=== PATIENT | male | born 1950 | race Caucasian/White ===

== ENCOUNTER 2016-10-15 07:34 | Day surgery (SDC) | payer OTHER ==
[2016-10-15] MEDS ORDERED: NS 1,000 ML IV ONE (07:39)
[2016-10-15] MEDS ORDERED: DIAZEPAM 5 MG TAB PO ONE (07:39)
[2016-10-15] MEDS ORDERED: diphenhydrAMINE 25 MG CAP PO ONE ×2 (07:39→07:51)
[2016-10-15] MEDS ORDERED: ASPIRIN EC 325 MG TAB PO ONE ×2 (07:39→07:51)
[2016-10-15] MEDS ORDERED: FAMOTIDINE 20 MG TAB PO ONE (07:39)
[2016-10-15] MEDS ORDERED: FAMOTIDINE 20 MG TAB ONE (07:51)
[2016-10-15] MEDS ORDERED: DIAZEPAM 5 MG TAB ONE (07:51)
[2016-10-15] MEDS ORDERED: ASPIRIN 81 MG CHEWABLE TAB ONE (08:07)
--- NOTE | 2016-10-15 08:08 | CPEKG ---
Heart Rate: 54 RR Interval: 1111 P-R Interval: 228 QRSD Interval: 102 QT Interval: 476 QTC Interval: 452 P [place]: 78 QRS [place]: -4 T Wave [place]: 34 EKG Severity - ABNORMAL ECG - EKG Impression: SINUS RHYTHM EKG Impression: FIRST DEGREE AV BLOCK EKG Impression: ABNRM R PROG, CONSIDER ASMI OR LEAD PLACEMENT Electronically Signed By: Estrella Finch 15-Oct-2016 10:00:05
[2016-10-15 08:17] LABS: % IMMATURE GRANULYOCYTES 0.2 % (0.0-1.1); ABSOLUTE IMMATURE GRANULOCYTES 0.01 10^3/uL (0.00-0.10); ADD DIFF? NO; ADD MORPH? NO; ADD SCAN? NO; ATYPICAL LYMPHOCYTE FLAG 10 (0-99); FRAGMENT RBC FLAG 0 (0-99); HEMATOCRIT 45.8 % (40.0-51.0); HEMOGLOBIN 15.8 g/dL (13.7-17.5); LEFT SHIFT FLG 0 (0-99); LIPEMIA HEMOLYSIS FLAG 90 (0-99); MEAN CELL HEMOGLOBIN 30.7 pg (27.9-34.1); MEAN CELL HEMOGLOBIN CONCENTR. 34.5 g/dL (32.4-36.7); MEAN CELL VOLUME 88.9 fL (81.5-99.8); MEAN PLATELET VOLUME 8.8 fL (8.7-11.7); PLATELET CLUMPS FLAG 0 (0-99); PLATELET COUNT 201 10^3/uL (150-400); RED BLOOD CELL COUNT 5.15 10^6/uL (4.40-6.38); RED CELL DISTRIBUTION WIDTH 12.9 % (11.5-15.2)
[2016-10-15 08:51] LABS: ANION GAP 10 mEq/L (8-16); CALCIUM 9.6 mg/dL (8.5-10.4); CARBON DIOXIDE 22 mEq/l (22-31); CHLORIDE 109 mEq/L (97-110); CHOLESTEROL 114 mg/dL (140-220); CHOLESTEROL/HDL RATIO 2.71 RATIO (1.00-4.97); CREATININE 0.8 mg/dL (0.7-1.3); GLOMERULAR FILTRATION RATE > 60; GLUCOSE 94 mg/dL (70-100); HIGH DENSITY LIPOPROTEIN 42 mg/dL (40-65); INR 1.07 (0.83-1.16); LDL/HDL RATIO 1.31 RATIO (1.00-3.64); LOW DENSITY LIPOPROTEIN 55 mg/dL (80-100); MAGNESIUM 1.7 mg/dL (1.6-2.3); NON-HIGH DENSITY LIPOPROTEIN 72 mg/dL (90-129); POTASSIUM 4.5 mEq/L (3.5-5.2); PROTIME(PATIENT) 13.8 SEC (12.0-15.0); SODIUM 141 mEq/L (134-144); TRIGLYCERIDE 89 mg/dL (40-150); VERY LOW DENSITY LIPOPROTEINS 17 mg/dL (8-25)
[2016-10-15] MEDS ORDERED: MIDAZOLAM 2 MG/2 ML VIAL ONE (11:17)
[2016-10-15] MEDS ORDERED: LIDOCAINE 1% 30 ML SDV ONE (11:17)
[2016-10-15] MEDS ORDERED: fentaNYL 100 MCG/2 ML INJ ONE (11:17)
[2016-10-15] MEDS ORDERED: IOPAMIDOL (ISOVUE-370) 150 ML BTL IV ONE ×2 (11:18→12:06)
[2016-10-15] MEDS ORDERED: ATROPINE SULFATE 1 MG/10 ML SYR IVP PRN (12:57)
[2016-10-15] MEDS ORDERED: HYDROCODONE/APAP 5/325 TAB PO PRN (12:57)
[2016-10-15] MEDS ORDERED: OXYCODONE/APAP 5/325 TAB PO PRN (12:57)
[2016-10-15] MEDS ORDERED: NITROGLYCERIN 0.4 MG BTL SL PRN (12:57)
--- NOTE | 2016-10-15 23:32 | GPN ---
[f rep st] PROCEDURE NOTE DATE OF PROCEDURE: 10/15/2016 PROCEDURE PERFORMED: 1. Diagnostic left heart catheterization. 2. Left coronary angiography. 3. Right coronary angiography. 4. Left ventriculogram. 5. Right common femoral artery angiography. INDICATIONS FOR PROCEDURE: Patient with a known history of coronary artery disease and complaints o f shortness of breath and dyspnea on exertion, with evidence of high-risk findings on nuclear stress test, including anterior ischemia, inferior ischemia, as well as transient ischemic dilatation. PROCEDURE IN DETAIL: After informed consent was obtained, the patient was brought to the cardiac ca theterization lab where he was prepped and draped in a sterile fashion. He has been off his Eliquis for 4 days prior to this procedure. Using 1% lidocaine, the right groin was anesthetized. Using t wil modified Seldinger technique, a 6-Somali catheter was placed into the right common femoral artery without complications. A JL4 catheter was used to take images of the left coronary anatomy in mult iple projections. The JL4 catheter was exchanged over a guidewire for a JR4 catheter. Attempts to cannulate the right coronary artery with the JL4 were unsuccessful. JR4 catheter was exchanged over a guidewire for a Rebel right catheter. Rebel right catheter, I was able to successfully can nulate the right coronary artery. Images of the right coronary artery were obtained in multiple pro jections. The Rebel right catheter is exchanged over a guidewire for an angled pigtail catheter. An angled pigtail catheter was used to cross the aortic valve. Left ventriculogram was performed. LVEDP was assessed. Aortic valve pullback was assessed. FINDINGS: 1. Left main is quite short in duration and promptly bifurcates into a left anterior descending and left circumflex coronary artery. There is no evidence of coronary disease within the left main. 2. The left anterior descending is a moderate size vessel that wraps around the left ventricular ap ex. There are mild luminal irregularities throughout the LAD diffusely. Nothing more significant t morales 20% to 30%. There is a moderate size 1st diagonal branch. There is evidence of 80% to 90% sten osis in the distal segment of this diagonal branch in a sub 2-mm vessel. 3. Circumflex artery is a large artery that bifurcates into a large 1st obtuse marginal branch. Th ere are mild luminal irregularities throughout the circumflex. 4. The right coronary artery is a dominant large caliber vessel, with jlzz-er-idnwhdeh luminal irre gularities that branches into a PDA and posterior lateral branch. There is no critical focal stenos is. 5. Left ventriculogram demonstrates a dilated left ventricular cavity, with LVEF of approximately 4 5% with global hypokinesis. 6. Right common femoral artery angiography demonstrated appropriate placement of 6-Somali femoral a rtery sheath. CONCLUSION: 1. Yhlj-lk-ngannabs diffuse coronary disease, with no flow-limiting stenosis of main vessels. 2. Focal stenosis of distal diagonal branch in a sub 2 mm vessel. Medical therapy only. 3. Dilated cardiomyopathy, with LVEF of 45%. PLAN: 1. We will continue to focus on optimal medical management. 2. Patient is scheduled for followup in the office next week. /[id number]/MODL
== END 2016-10-15 17:34 | disposition home or self-care (01) ==
LOC: FCATH 07:34
PROVIDERS: ATTEND Internal Medicine Cardiovascular Disease
DX: I25.10 Atherosclerotic heart disease of native coronary artery without angina pectoris (principal); E78.4 Other hyperlipidemia; E03.9 Hypothyroidism, unspecified; I51.7 Cardiomegaly
CPT/HCPCS: C1760; J1644; J2250; J3010; Q9967

== ENCOUNTER → 2017-06-04 | Day surgery (SDC) | payer OTHER ==
[~2017-06-04] MED LIST: ATROPINE SULFATE 1 MG/10 ML SYR IVP ONE; MIDAZOLAM 2 MG/2 ML VIAL IVP ONE; NS 500 ML IV ONE; fentaNYL 100 MCG/2 ML INJ IVP ONE
[2017-06-04 12:30] LABS: INR 1.15 (0.83-1.16); PROTIME(PATIENT) 14.9 SEC (12.0-15.0)
--- NOTE | 2017-06-04 14:58 | GCON ---
[f rep st] CONSULTATION PROCEDURE PERFORMED: Cardioversion. The patient was brought to [facility]. He is a patient of Dr. Jae Shaver and he genao d atrial fibrillation. He has longstanding atrial fibrillation and has been on full anticoagulation for over a year. He does not miss his medication and he did not want a transesophageal echocardiogram but wanted to pr oceed to direct cardioversion without DORINDA. He and I had reviewed extensively the risks and benefits of adding a DORINDA to just the full anticoagula tion he has had and he feels like that is not enough to make it worthwhile doing and wanted to procee d with just cardioversion alone. His preoperative labs came back with a potassium 6.4. He had a sodium of 143. He had a potassium of 6.4, chloride of 107, CO2 23, anion gap 13, glucose 104, and BUN 35. We did a repeat potassium afte r some hydration and it was still elevated above 5.2. We offered the patient to stay overnight in the hospital, have cardioversion the next morning, and he is not interested in that. We offered to keep him in the hospital for several hours of normal salin e hydration and he was not interested in that. What he was willing to do was have IV hydration of ap proximately 300 cc over an hour and then he wanted to go home. So, I was with him multiple times thr oughout this whole process and was with the nurse and I together helped get him ready to be discharge d and take off his blood pressure cuff, IVs, etc. And all his questions have been answered. He is c oming in at 9 o'clock tomorrow morning for a cardioversion, which is scheduled for 10:30 in the [facility] [facility]. We will hydrate him with normal saline when he gets here. We will repeat his electrolytes to e if his potassium is in the normal range. All his questions have been answered. I did offer for him to get his stat electrolytes done tomorrow morning early at [place], which is close to him, rather than driving all the way to [place] and hen finding out that his potassium is worse or not acceptable for the procedure. He is not intereste d in that. He wants to get everything done at [place] and he wants to come down here for this, so th at is our plan and we will go from there. All his questions have been answered. He is ready and alert and able and wants to drive home. /[id number]/MODL
== END | disposition home or self-care (01) ==
LOC: FCATH 11:33
PROVIDERS: ATTEND Internal Medicine
DX: I48.91 Unspecified atrial fibrillation (principal); Z79.01 Long term (current) use of anticoagulants; Z53.09 Procedure and treatment not carried out because of other contraindication; E87.5 Hyperkalemia

== ENCOUNTER 2017-06-05 08:58 | Day surgery (SDC) | payer OTHER ==
[2017-06-05] MEDS ORDERED: ATROPINE SULFATE 1 MG/10 ML SYR IVP ONE (09:06)
[2017-06-05] MEDS ORDERED: fentaNYL 100 MCG/2 ML INJ IVP ONE (09:06)
[2017-06-05] MEDS ORDERED: MIDAZOLAM 2 MG/2 ML VIAL IVP ONE (09:06)
[2017-06-05] MEDS ORDERED: NS 500 ML IV ONE (09:06)
[2017-06-05] MEDS ORDERED: NS 1,000 ML IV ONE (09:30)
--- NOTE | 2017-06-05 09:35 | CPEKG ---
Heart Rate: 119 RR Interval: 504 QRSD Interval: 106 QT Interval: 344 QTC Interval: 485 QRS [place]: -11 T Wave [place]: 78 EKG Severity - ABNORMAL ECG - EKG Impression: ATRIAL FLUTTER WITH 2:1 AV BLOCK EKG Impression: VENTRICULAR PREMATURE COMPLEX EKG Impression: PROBABLE LEFT VENTRICULAR HYPERTROPHY EKG Impression: ST ELEVATION, CONSIDER ANTERIOR INJURY EKG Impression: BORDERLINE PROLONGED QT INTERVAL Electronically Signed By: Ang Beltran 05-Jun-2017 12:06:54
[2017-06-05 09:56] LABS: INR 1.45 (0.83-1.16); PROTIME(PATIENT) 17.8 SEC (12.0-15.0)
[2017-06-05] MEDS ORDERED: PROPOFOL 200 MG/20 ML VIAL ONE (10:30)
[2017-06-05] MEDS ORDERED: LIDOCAINE 1% 5 ML SDV ONE (10:30)
[2017-06-05] MEDS ORDERED: ALBUTEROL 3 ML DEYVIAL IH PRN (10:42)
[2017-06-05] MEDS ORDERED: NALOXONE HCL 0.4 MG/ML INJ IVP PRN (10:42)
--- NOTE | 2017-06-05 10:42 | PDANEPAE ---
ANE History of Present Illness A. flutter ANE Past Medical History - Cardiovascular History Hx Hypertension: Yes Hx Arrhythmias: Yes Hx Chest Pain: Yes Hx Coronary Artery / Peripheral Vascular Disease: Yes Hx CHF / Valvular Disease: Yes Hx Palpitations: No - Pulmonary History Hx COPD: Yes Hx Asthma/Reactive Airway Disease: No Hx Recent Upper Respiratory Infection: No Hx Oxygen in Use at Home: Yes Hx Sleep Apnea: Yes Pulmonary History Comment: CHF - Neurologic History Hx Cerebrovascular Accident: No Hx Seizures: No Hx Dementia: No - Endocrine History Hx Diabetes: No - Renal History Hx Renal Disorders: No - Liver History Hx Hepatic Disorders: No - Neurological & Psychiatric Hx Hx Neurological and Psychiatric Disorders: No - Cancer History Hx Cancer: No - Congenital Disorder History Hx Congenital Disorders: No - GI History Hx Gastrointestinal Disorders: No - Chronic Pain History Chronic Pain: No - Surgical History Prior Surgeries: mitral valve sx, Ablation, appendectomy, colon resection, rotator cuff repair, knee sx ANE Review of Systems Review of systems is: negative Review of Systems: - Exercise capacity Exercise capacity: >=4 METS ANE Patient History - Allergies Allergies/Adverse Reactions: latex [Latex] Allergy (Verified 10/05/11 15:06) NARCOTICS Allergy (Uncoded 06/05/17 06:29) Itching - Home Medications Home Medications: Albuterol Hfa Anes Only [Proair Hfa Icu (*)] 1 - 2 puffs IH Q4 PRN 10/05/11 [ Last Taken 06/05/17 06:00] Atorvastatin Calcium [Lipitor 40 mg (*)] 40 mg PO HS 10/05/11 [Last Taken ] MIRTAZAPINE [Remeron 7.5 mg] 3.75 mg PO HS 11/09/12 [Last Taken 10/15/16] Liothyronine Sodium [Cytomel 25 mcg (*)] 12.5 mcg PO DAILY 11/12/12 [Last Taken 06/05/17 06:00] Psyllium Husk (with Sugar) [Metamucil Packet] 1 packet PO DAILY PRN 11/12/12 [ Last Taken 10/14/16] ALPRAZolam [Xanax 1 MG (*)] 1 mg PO HS 11/15/12 [Last Taken 10/14/16] Aspirin EC [Aspirin EC 81 mg (*)] 81 mg PO DAILY 05/02/13 [Last Taken 06/04/17 08:00] Lisinopril [Zestril 5 mg (*)] 5 mg PO DAILY 05/02/13 [Last Taken 06/05/17 06:00] Tiotropium Inhaler [Spiriva Inhaler (RX)] 1 inh IH DAILY 05/02/13 [Last Taken ] buPROPion XL [Wellbutrin 150mg XL] 150 mg PO DAILY 05/02/13 [Last Taken 06:00] Sotalol HCl [Sotalol] 120 mg PO BID 06/15/14 [Last Taken 10/15/16] Eliquis 5 mg 10/15/16 [Last Taken 06/05/17 06:00] Flunisolide Nasal 25 mcg 10/15/16 [Last Taken 10/15/16] GABAPENTIN 100 mg BID 10/15/16 [Last Taken 06/05/17 06:00] - NPO status NPO Status: no food or drink >8 hours - Anes Hx Anes Hx: no prior problems - Smoking Hx Smoking Status: Former smoker Marijuana use: Yes - Alcohol Use Alcohol Use: None - Family Anes Hx Family Hx Anesthesia Complications: none ANE Labs/Vital Signs - Labs Result Diagrams: 06/05/17 09:15 - Vital Signs Vital Signs: reviewed preoperatively; see RN documention for details Height: 178 cm Weight: 95.3 kg ANE Physical Exam - Airway Neck exam: FROM Mallampati Score: Class 3 Mouth exam: normal dental/mouth exam - Pulmonary Pulmonary: no respiratory distress - Cardiovascular Cardiovascular: regular rate and rhythym - ASA Status ASA Status: III ANE Anesthesia Plan Anesthesia Plan: GA with mask
--- NOTE | 2017-06-05 10:46 | PDHPUP ---
History & Physical Update H&P update statement: This history and physical update is based on an assessment of the patient which was completed after admission or registration (within 24 hours), but prior to the surgery/procedure.
--- NOTE | 2017-06-05 11:05 | POSTANESTH ---
Post Anesthetic Evaluation Cardiovascular Status: Normal, Stable Respiratory Status: Normal, Stable Level of Consciousness/Mental Status: Can Participate in Eval Pain Control: Adequate, Prn Tx Ordered Nausea/Vomiting Control: Adequate, Prn Tx Ordered Complications Possibly Related to Anesthesia: None Noted
--- NOTE | 2017-06-05 11:06 | CPEKG ---
Heart Rate: 68 RR Interval: 882 P-R Interval: 224 QRSD Interval: 104 QT Interval: 412 QTC Interval: 439 P [place]: 61 QRS [place]: 0 T Wave [place]: 47 EKG Severity - ABNORMAL ECG - EKG Impression: SINUS RHYTHM EKG Impression: FIRST DEGREE AV BLOCK EKG Impression: BORDERLINE R WAVE PROGRESSION, ANTERIOR LEADS EKG Impression: BORDERLINE ST ELEVATION, ANTERIOR LEADS Electronically Signed By: Ang Beltran 05-Jun-2017 12:06:27
--- NOTE | 2017-06-05 12:12 | CPIP ---
[f rep st] INVASIVE CARDIAC PROCEDURE DATE OF PROCEDURE: 06/05/2017 PROCEDURE: Cardioversion. The patient gave informed consent for a cardioversion. His potassium was mildly elevated at 5.4, and he is going to follow up with his doctors about this. He wanted to proceed with the cardioversion despite the little bit of increased risk with an elevated potassium and being aware of the risks of stroke, asystole , etc, that are inherent in cardioversions. He was eager to proceed, and with 360 watt/seconds, he converted from atrial fibrillation to normal sinus rhythm. He has been on full anticoagulation for many months, and has not missed any doses. He is going to continue his anticoagulation and follow up with Dr. Staley. COMPLICATIONS: None. CONDITION: Following study, excellent. All questions answered. /[id number]/MODL MTDD
== END 2017-06-05 12:21 | disposition home or self-care (01) ==
LOC: FCATH 08:58
PROVIDERS: ATTEND Internal Medicine
PROC: 5A2204Z Restoration of Cardiac Rhythm, Single (ICD-10-PCS; principal; 2017-06-05)
DX: I48.91 Unspecified atrial fibrillation (principal); I48.92 Unspecified atrial flutter; I10 Essential (primary) hypertension; E78.5 Hyperlipidemia, unspecified; Z82.49 Family history of ischemic heart disease and other diseases of the circulatory system; Z79.01 Long term (current) use of anticoagulants
CPT/HCPCS: J0461; J2704

== ENCOUNTER 2017-07-23 11:09 | Observation (INO) | payer OTHER ==
--- NOTE | 2017-07-23 11:21 | CPEKG ---
Heart Rate: 148 RR Interval: 405 QRSD Interval: 102 QT Interval: 304 QTC Interval: 478 QRS [place]: -4 T Wave [place]: 16 EKG Severity - ABNORMAL ECG - EKG Impression: ATRIAL FIBRILLATION EKG Impression: VENTRICULAR BIGEMINY EKG Impression: CONSIDER INFERIOR INFARCT EKG Impression: PROBABLE ANTERIOR INFARCT, ACUTE Electronically Signed By: Otto Saez 23-Jul-2017 12:46:16
--- NOTE | 2017-07-23 11:37 | EDPHY ---
H & P Stated Complaint: afib since this morning Time Seen by Provider: 07/23/17 11:17 HPI/ROS: CHIEF COMPLAINT: Palpitations HISTORY OF PRESENT ILLNESS: The patient presents to the emergency department with complaints of palpitations that began earlier today. The patient has a history of atrial tachycardia. Status post Maze procedure, status post ablation x2, currently anticoagulated with Eliquis, NPO since yesterday. The patient was last cardioverted for this arrhythmia mid June. He is currently on sotalol. The patient denies any recent fever, cough or congestion. He has no active complaints of chest pain. REVIEW OF SYSTEMS: A comprehensive 10 point review of systems is otherwise negative aside from elements mentioned in the history of present illness. Source: Patient Exam Limitations: No limitations - Personal History Current Tetanus/Diphtheria Vaccine: Unsure Tetanus Vaccine Date: >10 YRS - Medical/Surgical History Hx Asthma: No Hx Chronic Respiratory Disease: No Hx Diabetes: No Hx Cardiac Disease: Yes Hx Renal Disease: No Hx Cirrhosis: No Hx Alcoholism: No Hx HIV/AIDS: No Hx Splenectomy or Spleen Trauma: No Other PMH: afib/degenerative disc/back fx - Social History Smoking Status: Former smoker - Physical Exam Exam: General Appearance: Alert, no distress Eyes: Pupils equal and round no pallor or injection ENT, Mouth: Mucous membranes moist Respiratory: There are no retractions, lungs are clear to auscultation Cardiovascular: Tachycardic, irregular Gastrointestinal: Abdomen is soft and nontender, no masses, bowel sounds normal Neurological: A&O, normal motor function, normal sensory exam, normal cranial nerves Skin: Warm and dry, no rashes Musculoskeletal: Neck is supple nontender Extremities: symmetrical, full range of motion Constitutional: Initial Vital Signs Temperature (C) 36.5 C 07/23/17 11:12 Heart Rate 131 H 07/23/17 11:12 Respiratory Rate 18 07/23/17 11:12 Blood Pressure 148/110 H 07/23/17 11:12 O2 Sat (%) 95 07/23/17 11:12 O2 Delivery Mode Room Air Allergies/Adverse Reactions: latex [Latex] Allergy (Verified 07/23/17 11:11) NARCOTICS Allergy (Uncoded 06/05/17 06:29) Itching Home Medications: Medication Instructions Recorded Albuterol Hfa Anes Only [Proair 1 - 2 puffs IH Q4 PRN 10/05/11 Hfa Icu (*)] Atorvastatin Calcium [Lipitor 40 40 mg PO HS 10/05/11 mg (*)] MIRTAZAPINE [Remeron 7.5 mg] 3.75 mg PO HS 11/09/12 Liothyronine Sodium [Cytomel 25 12.5 mcg PO DAILY 11/12/12 mcg (*)] Psyllium Husk (with Sugar) 1 packet PO DAILY PRN 11/12/12 [Metamucil Packet] ALPRAZolam [Xanax 1 MG (*)] 1 mg PO HS 11/15/12 Aspirin EC [Aspirin EC 81 mg (*)] 81 mg PO DAILY 05/02/13 Lisinopril [Zestril 5 mg (*)] 5 mg PO DAILY 05/02/13 Tiotropium Inhaler [Spiriva 1 inh IH DAILY 05/02/13 Inhaler (RX)] buPROPion XL [Wellbutrin 150mg XL] 150 mg PO DAILY 05/02/13 Sotalol HCl [Sotalol] 120 mg PO BID 06/15/14 Eliquis 5 mg 10/15/16 Flunisolide Nasal 25 mcg 10/15/16 GABAPENTIN 100 mg BID 10/15/16 Medical Decision Making - Diagnostics EKG Interpretation: EKG: Complete interpretation has been separately recorded in the [employer] archive. Summary impression: Atrial flutter with what appears to be a rate- related variable left bundle branch block ED Course/Re-evaluation: The patient presents to the ED with recurrent atrial tachycardia. He is currently hemodynamically stable. The patient is currently NPO. I reviewed his past medical records including his cardioversion from June of this year. I consulted with Dr. Alvarenga from Cardiology who evaluated the patient in the emergency department and will admit the patient to the [facility] for elective cardioversion and DORINDA. The patient remained stable throughout his ER course. Differential Diagnosis: Differential diagnosis considered includes atrial fibrillation, atrial flutter, dehydration, metabolic abnormality - Data Points Laboratory Results: Laboratory Results 07/23/17 11:22 07/23/17 07/23/17 11:22 11:22 PT 14.4 SEC SEC (12.0-15.0) INR 1.10 (0.83-1.16) APTT 35.1 SEC SEC (23.0-38.0) Sodium 141 mEq/L mEq/L (135-145) Potassium 4.6 mEq/L mEq/L (3.5-5.2) Chloride 109 mEq/L mEq/L (97-110) Carbon Dioxide 17 mEq/l L mEq/l (22-31) Anion Gap 15 mEq/L mEq/L (8-16) BUN 22 mg/dL mg/dL (7-23) Creatinine 1.0 mg/dL mg/dL (0.7-1.3) Estimated GFR > 60 Glucose 109 mg/dL H mg/dL (70-100) Calcium 9.7 mg/dL mg/dL (8.5-10.4) Magnesium 1.7 mg/dL mg/dL (1.6-2.3) Departure - Departure Disposition: To OP Cath/Surgery Clinical Impression: Atrial fibrillation Condition: Good Referrals: Denzel Angelo MD [Primary Care Provider] - As per Instructions
[2017-07-23] MEDS ORDERED: PROPOFOL 200 MG/20 ML VIAL ONE ×2 (11:55→13:13)
[2017-07-23 12:40] LABS: INR 1.1 (0.83-1.16); PROTIME(PATIENT) 14.4 SEC (12.0-15.0)
[2017-07-23] MEDS ORDERED: ATROPINE SULFATE 1 MG/10 ML SYR IVP ONE (12:46)
[2017-07-23] MEDS ORDERED: fentaNYL 100 MCG/2 ML INJ IVP ONE (12:46)
[2017-07-23] MEDS ORDERED: NS 500 ML IV ONE (12:46)
[2017-07-23] MEDS ORDERED: MIDAZOLAM 2 MG/2 ML VIAL IVP ONE (12:46)
[2017-07-23] MEDS ORDERED: BENZOCAINE UNIT DOSE SPRAY HURRICAINE MM ONE (12:46)
[2017-07-23] MEDS ORDERED: APIXABAN 5 MG TAB PO ONE (13:00)
[2017-07-23] MEDS ORDERED: LIDOCAINE 2% 100 MG/5 ML SYR ONE (13:13)
--- NOTE | 2017-07-23 13:17 | PDHPUP ---
History & Physical Update H&P update statement: This history and physical update is based on an assessment of the patient which was completed after admission or registration (within 24 hours), but prior to the surgery/procedure. H&P update: H&P reviewed & patient examined, no change in patient's condition since H&P completed
[2017-07-23] MEDS ORDERED: PHENYLEPHRINE HCL 100 MCG/ML SYR ONE (13:19)
--- NOTE | 2017-07-23 13:26 | PDANEPAE ---
ANE Past Medical History - Cardiovascular History Hx Hypertension: Yes Hx Arrhythmias: Yes Hx Chest Pain: Yes Hx Coronary Artery / Peripheral Vascular Disease: Yes Hx CHF / Valvular Disease: Yes Hx Palpitations: No - Pulmonary History Hx COPD: Yes Hx Asthma/Reactive Airway Disease: No Hx Recent Upper Respiratory Infection: No Hx Oxygen in Use at Home: Yes O2 in Use at Home (L/minute): 2.5 Hx Sleep Apnea: Yes Pulmonary History Comment: CHF - Neurologic History Hx Cerebrovascular Accident: No Hx Seizures: No Hx Dementia: No - Endocrine History Hx Diabetes: No Hypothyroid: No Hyperthyroid: No Obesity: yes, mild - Renal History Hx Renal Disorders: No - Liver History Hx Hepatic Disorders: No - Neurological & Psychiatric Hx Hx Neurological and Psychiatric Disorders: No - Cancer History Hx Cancer: No - Congenital Disorder History Hx Congenital Disorders: No - GI History GERD: no Hx Gastrointestinal Disorders: No - Chronic Pain History Chronic Pain: No - Surgical History Prior Surgeries: mitral valve sx, Ablation, appendectomy, colon resection, rotator cuff repair, knee sx ANE Review of Systems Review of Systems: - Exercise capacity METS (RN): 4 METS ANE Patient History - Allergies Allergies/Adverse Reactions: latex [Latex] Allergy (Verified 07/23/17 11:11) NARCOTICS Allergy (Uncoded 06/05/17 06:29) Itching - Home Medications Home Medications: Albuterol Hfa Anes Only [Proair Hfa Icu (*)] 1 - 2 puffs IH Q4 PRN 10/05/11 [ Last Taken 06/05/17 06:00] Atorvastatin Calcium [Lipitor 40 mg (*)] 40 mg PO HS 10/05/11 [Last Taken ] MIRTAZAPINE [Remeron 7.5 mg] 3.75 mg PO HS 11/09/12 [Last Taken 10/15/16] Liothyronine Sodium [Cytomel 25 mcg (*)] 12.5 mcg PO DAILY 11/12/12 [Last Taken 06/05/17 06:00] Psyllium Husk (with Sugar) [Metamucil Packet] 1 packet PO DAILY PRN 11/12/12 [ Last Taken 10/14/16] ALPRAZolam [Xanax 1 MG (*)] 1 mg PO HS 11/15/12 [Last Taken 10/14/16] Aspirin EC [Aspirin EC 81 mg (*)] 81 mg PO DAILY 05/02/13 [Last Taken 06/04/17 08:00] Lisinopril [Zestril 5 mg (*)] 5 mg PO DAILY 05/02/13 [Last Taken 06/05/17 06:00] Tiotropium Inhaler [Spiriva Inhaler (RX)] 1 inh IH DAILY 05/02/13 [Last Taken ] buPROPion XL [Wellbutrin 150mg XL] 150 mg PO DAILY 05/02/13 [Last Taken 06:00] Sotalol HCl [Sotalol] 120 mg PO BID 06/15/14 [Last Taken 10/15/16] Eliquis 5 mg 10/15/16 [Last Taken 06/05/17 06:00] Flunisolide Nasal 25 mcg 10/15/16 [Last Taken 10/15/16] GABAPENTIN 100 mg BID 10/15/16 [Last Taken 06/05/17 06:00] - Anes Hx Anes Hx: no prior problems - Smoking Hx Smoking Status: Former smoker - Alcohol Use Alcohol Use: Heavy - Family Anes Hx Family Anes Hx: neg - N/A Family Hx Anesthesia Complications: none ANE Labs/Vital Signs - Labs Result Diagrams: 07/23/17 11:22 - Vital Signs Blood Pressure: 133/84 Heart Rate: 146 Respiratory Rate: 14 O2 Sat (%): 98 Height: 177.8 cm Weight: 93.44 kg ANE Physical Exam - Airway Neck exam: decreased ROM Mallampati Score: Class 3 Mouth exam: normal dental/mouth exam - Pulmonary Pulmonary: no respiratory distress, no rales or rhonchi, clear to auscultation - Cardiovascular Cardiovascular: irregularly irregular - ASA Status ASA Status: III ANE Anesthesia Plan Anesthesia Plan: MAC Total IV Anesthesia: Yes
--- NOTE | 2017-07-23 14:02 | PDTEE1 ---
DORINDA Cardioversion Procedure Procedure: electrical cardioversion Indications: atrial fibrillation Consent: signed and in chart Anticoagulation: eliquis Procedural Details: Pads were placed in anterior-posterior position. DORINDA probe was advanced and standard images obtained. There is no evidence of left atrial or left atrial appendage thrombus. Synchronized cardioversion attempt #1: 200J Results: normal sinus rhythm Conclusions: successful DORINDA cardioversion Patient Problems: Problems Problem Status Onset Atrial fibrillation Acute Afib - Atrial fibrillation Active Bacteremia Active Fever Active Mitral valve regurgitation Active Pneumonia Active
--- NOTE | 2017-07-23 14:15 | CPEKG ---
Heart Rate: 95 RR Interval: 632 P-R Interval: 192 QRSD Interval: 108 QT Interval: 360 QTC Interval: 453 P [place]: 58 QRS [place]: 0 T Wave [place]: 64 EKG Severity - ABNORMAL ECG - EKG Impression: SINUS RHYTHM EKG Impression: VENTRICULAR PREMATURE COMPLEX EKG Impression: ST ELEVATION, CONSIDER ANTERIOR INJURY Electronically Signed By: Lyndon Saucedo 23-Jul-2017 17:32:50
--- NOTE | 2017-07-23 14:50 | GHP ---
[f rep st] HISTORY AND PHYSICAL DATE OF ADMISSION: 07/23/2017 PRIMARY CONSULTING GROUP ANALYST: Jae Staley MD and Rudolph Mahan MD CHIEF COMPLAINT: Atrial flutter. HISTORY OF PRESENT ILLNESS: The patient is a 66-year-old male with a history of mitral valve repair, maze procedure in 2012. He has had recurrent episodes of atrial tachycardia. He has had 2 left atr ial tachycardia ablations. He has previously seen Dr. Mahan, last in August 2015. Current management strategy is Eliquis and sotalol. He presented to the ER earlier today with palpitations that had started this morning. No other cardi ovascular symptoms. He was found to be in likely atrial flutter with ventricular ectopy. He had rap id ventricular response. Because he was symptomatic, we elected to bring him to the [facility]. He underwent a DORINDA-guided cardioversion, as he was not certain that he had not had missed any Eliquis doses in the last several weeks. Please see separate DORINDA report. In summary, his ejection fraction is 30%. He has mitral valve repair with rcjd-hv-mgetfvsq mitral regurgitation. No intracardiac thr ombus. He had a successful cardioversion with 200-joule shock. Immediately after the shock, he had approximately 4-5 beat run of nonsustained VT and then sinus rhythm. His post cardioversion EKG show s sinus rhythm with a single PVC. His QT interval is normal. PAST MEDICAL HISTORY: 1. History of atrial tachycardia and atrial tachycardia ablation. 2. AFib is listed on his medical history. 3. COPD. 4. Dyslipidemia. 5. Hypothyroidism. 6. Status post mitral valve repair and maze procedure in 2012. 7. History of knee surgery, elbow surgery, and shoulder surgery. OUTPATIENT MEDICATIONS: According to Pharmacy, but may not have been reconciled yet are albuterol, X anax, aspirin 81 mg, atorvastatin 40 mg daily, Wellbutrin 150 mg daily, Eliquis 5 mg twice daily, maurice apentin, liothyronine, lisinopril, Remeron, and Spiriva inhaler. His daughter states that he was rec ently started on a new sleeping medication by his psychiatrist. I do not have the name of this yet. FAMILY HISTORY: Not applicable to the current case. SOCIAL HISTORY: The patient is a former smoker. PHYSICAL EXAM: VITAL SIGNS: Blood pressure 133/84, heart rate 146, oxygen saturation 98% on room ai r. He is afebrile. GENERAL: Well-appearing older male in no acute distress. HEENT: Sclerae clear and free of jaundice. Mucous membranes moist. CARDIOVASCULAR: JVP less than 10. Regular tachycar dic rhythm without S3 or murmur. No rub. LUNGS: Occasional scattered rhonchi. ABDOMEN: Soft and nontender. EXTREMITIES: Warm without edema. LABORATORY DATA: INR 1.1. Sodium 141, potassium 4.6, chloride 109, bicarb 17, BUN 20, creatinine 1. 0, magnesium is 1.7. EKG as described above. DORINDA as detailed above. ASSESSMENT/PLAN: A 66-year-old male with history of valvular heart disease and atrial arrhythmia. H e presented in what appears to be either atrial flutter, atrial tachycardia with significant ventricu lar ectopy as well. He is now status post successful DORINDA cardioversion, but he did have nonsustained ventricular tachycardia as his first rhythm post cardioversion and is having ventricular ectopy on t he monitor. I have discussed the case with his primary penal officer, Dr. Jae Staley. The patient did have a nucl ear stress test in 2017 that did show inferolateral ischemia and has not had any angiogram since that time. Because of his arrhythmia, we will admit him for observation. 1. Atrial arrhythmia: We will stop sotalol as it is not apparently effective, and he has been havin g some ventricular tachycardia. I would like him to be seen by Dr. Rudolph Mahan, whom he has seen pr eviously. Continue Eliquis. Start Coreg for his atrial arrhythmia and cardiomyopathy. 2. Ventricular tachycardia: Magnesium is normal. He may require coronary angiogram after he has co mpleted 1 month of anticoagulation status post cardioversion. He is not having any angina and his EK G appears nonischemic. 3. Valvular heart disease: He has fclt-zd-bmlrnula mitral regurgitation through his repaired mitral valve. Other valves appear normal. 4. Cardiomyopathy: Ejection fraction 30%. In the outpatient setting, it has been about 45%. This may be due to his tachyarrhythmia. He does not appear to be in overt heart failure. 5. Chronic obstructive pulmonary disease: I do not think he wears oxygen at home. We will monitor oxygen saturations here. He is not wheezing on exam. I anticipate less than 2 midnights stay just for rhythm observation and med changes. Currently in st able condition. Results discussed with the patient's daughter. /[id number]/MODL
--- NOTE | 2017-07-23 14:58 | ECHO ---
[email or web address] [address] [address] Main: [phone] Fax: Transesophageal Echocardiography Name: MIMI PINEDA MR#: [id number] Study Date: 07/23/2017 Study Time: 01:05 PM Date of : 1950 Age: 66 year(s) Height: ( ) Weight: ( ) BSA: Gender: Male Examination: DORINDA Indication: Pre DORINDA Image Quality: Contrast: Requested by: Jabari Moss Heart Rate: Rhythm: BP: / Procedure Staff Club Waiter/Waitress: Ihsan Mayorga RDCS Reading Physician: Pamela Alvarenga Requesting Provider: Pamela Alvarenga DORINDA Exam Details Conclusions: Moderately reduced systolic LV function. The ejection fraction is visually estimated to be 30 %. Normal RV function. Spontaneous contrast in the left atrium. Good color flow doppler in the left atrial appendage. No thrombus in left appendage. The mitral valve has been repaired with moderate MR. There is a hypermobile structure during systole.. Mild aortic valve regurgitation is present. Proceed with successful cardioversion Measurements: Chambers Valvular Assessment AV/MV Valvular Assessment TV/PV Normal Normal Normal Name Value Range Name Value Range Name Value Range Visual EF: 30 % Additional Measurements: Findings: Left Ventricle: Moderately reduced systolic LV function. The ejection fraction is visually estimated to be 30 %. Right Ventricle: Patient: MIMI PINEDA Study Date: 07/23/2017 Page 1 of 2 01:05 PM Normal RV function. Left Atrium: Spontaneous contrast in the left atrium. Left Atrial Appendage: Good color flow doppler in the left atrial appendage. No thrombus in left appendage. Mitral Valve: The mitral valve has been repaired with moderate MR. There is a hypermobile structure during systole.. Aortic Valve: The aortic valve is tri-leaflet. Mild aortic valve regurgitation is present. Tricuspid Valve: The tricuspid valve is normal in appearance and function. Pulmonic Valve: The pulmonic valve is normal in appearance and function. Aorta: The aorta is normal. Pericardium: No pericardial effusion. l1n (No Signature Object) Patient: MIMI PINEDA Study Date: 07/23/2017 Page 2 of 2 01:05 PM [id number]
[2017-07-23] MEDS ORDERED: ALBUTEROL 60 PUFFS/8 GM MDI IH PRN (16:40)
[2017-07-23] MEDS: CARVEDILOL 6.25 MG TAB PO SCH (17:34)
[2017-07-23] MEDS: GABAPENTIN 100 MG CAP PO SCH (20:38)
[2017-07-23] MEDS: APIXABAN 5 MG TAB PO SCH (20:38)
[2017-07-23] MEDS ORDERED: ALPRAZolam 1 MG TAB PO SCH (21:00)
[2017-07-23] MEDS ORDERED: MIRTAZAPINE 15 MG TAB PO SCH (21:00)
[2017-07-23] MEDS ORDERED: Tiotropium Br/Olodaterol Hcl [Stiolto Respimat Inhal Spray] IH SCH (21:00)
[2017-07-23] MEDS ORDERED: ATORVASTATIN CALCIUM 40 MG TAB PO SCH (21:00)
[2017-07-23] MEDS ORDERED: clonazePAM 1 MG TAB PO SCH (21:00)
[2017-07-23] MEDS ORDERED: NON-FORMULARY NEW DRUG (Tiotropium Br/Olodaterol Hcl [Stiolto Respimat Inhal Spray] 2 PUFF IH SCH (21:00)
[2017-07-23] MEDS ORDERED: QUEtiapine FUMARATE 50 MG TAB PO SCH (21:00)
[2017-07-24] MEDS: FLUNISOLIDE NASAL 200 SPRAYS/25 ML MDI EACHNARE SCH ×2 (05:06→10:28)
[2017-07-24 08:05] VITALS: PULSE 89; O2SAT 97
[2017-07-24] MEDS: GABAPENTIN 100 MG CAP PO SCH (08:08)
[2017-07-24] MEDS: CARVEDILOL 6.25 MG TAB PO SCH (08:08)
[2017-07-24] MEDS: APIXABAN 5 MG TAB PO SCH (08:09)
[2017-07-24] MEDS ORDERED: LIOTHYRONINE SODIUM 25 MCG TAB PO SCH (09:00)
[2017-07-24] MEDS ORDERED: ASPIRIN 81 MG CHEWABLE TAB PO SCH (09:00)
[2017-07-24] MEDS ORDERED: buPROPion XL 150 MG TAB PO SCH (09:00)
[2017-07-24] MEDS ORDERED: LISINOPRIL 5 MG TAB PO SCH (09:00)
--- NOTE | 2017-07-24 09:04 | CPEKG ---
Heart Rate: 81 RR Interval: 741 P-R Interval: 204 QRSD Interval: 108 QT Interval: 380 QTC Interval: 441 P [place]: 55 QRS [place]: -12 T Wave [place]: 69 EKG Severity - NORMAL ECG - EKG Impression: SINUS RHYTHM Electronically Signed By: Lyndon Saucedo 24-Jul-2017 09:28:55
--- NOTE | 2017-07-24 10:51 | ECHO ---
[email or web address] [address] [address] Main: [phone] Fax: Transthoracic Echocardiogram Name: MIMI PINEDA MR#: [id number] Study Date: 07/24/2017 Study Time: 08:35 AM Date of : 1950 Age: 66 year(s) Height: 177.8 cm (70 in.) Weight: 92.99 kg (205 lb.) BSA: 2.11 m2 Gender: Male Examination: Limited Echo Indication: Eval EF post DCCV Image Quality: Contrast: Requested by: Pamela Alvarenga BP: 103 mmHg/98 mmHg Heart Rate: Rhythm: Indication: Eval EF post DCCV Procedure Staff [employer] Counselor: Ihsan Mayorga RDCS Reading Physician: Pamela Alvarenga MD Requesting Provider: Conclusions: Normal global systolic LV function. The ejection fraction is estimated to be 55-60 %. This is a limited echo to evaluate LV function post cardioversion. The previous EF was estimated at 30% The ejection fraction is estimated at 55-60% with ectopy noted during the exam.. Measurements: Chambers Valvular Assessment AV/MV Valvular Assessment TV/PV Normal Normal Normal Name Value Range Name Value Range Name Value Range IVSd (2D): 0.9 cm (0.6 cm-1.1 cm) LVDd (2D): 5.4 cm (4.2 cm-5.9 cm) LVDs (2D): 3.8 cm (2.1 cm-4 cm) LVPWd (2D): 1.1 cm (0.6 cm-1 cm) LVEF (BP): 56 % (>=55 %) EF Range: 55-60 % Continued Measurements: Findings: Left Ventricle: Normal global systolic LV function. The ejection fraction is estimated to be 55-60 %. Exam Comments: This is a limited echo to evaluate LV function post cardioversion. The previous EF was estimated at 30% The ejection fraction is estimated at 55-60% with ectopy noted during the exam.. Patient: MIMI PINEDA Study Date: 07/24/2017 Page 1 of 2 08:35 AM (No Signature Object) Patient: MIMI PINEDA Study Date: 07/24/2017 Page 2 of 2 08:35 AM [id number]
[2017-07-24] MEDS ORDERED: PNEUMOC 13-VAL CONJ-DIP CRM/PF 0.5 ML SYR IM ONE (11:55)
[2017-07-24] MEDS ORDERED: FLU VACC QS 2017-18 (3YR+)/PF 0.5 ML SYR (FLUARIX QUAD) IM ONE (11:55)
[2017-07-24 12:35] VITALS: BP 129/87; RESP 18; TEMP 98.7
--- NOTE | 2017-07-24 13:44 | GDS ---
[f rep st] DISCHARGE SUMMARY ADMISSION DIAGNOSES: 1. Atrial tachycardia versus atrial flutter with rapid ventricular response and ventricular ectopy. 2. Valvular heart disease with history of mitral valve repair. 3. Chronic obstructive pulmonary disease. 4. Hypothyroidism. DISCHARGE DIAGNOSES: 1. Paroxysmal atrial tachycardia versus atrial flutter status post DORINDA-guided cardioversion. 2. Transient cardiomyopathy, likely related with an ejection fraction of 30% during DORINDA and then 55% the day of discharge, in sinus rhythm. 3. Valvular heart disease, status post mitral valve repair. One to 2+ residual mitral regurgitation . Hyperechoic lesion seen on mitral valve with normal ESR, CRP, and negative blood cultures to date. 4. Nonsustained ventricular tachycardia and premature ventricular contractions. 5. Chronic obstructive pulmonary disease. 6. Hypothyroidism. 7. Cough. PROCEDURES DURING ADMISSION: 1. DORINDA-guided cardioversion. Please see dictated report. In summary, ejection fraction was moderat rosendo decreased at 30%. Fotd-rw-nduszveb mitral regurgitation. No intracardiac thrombus. Successful 200 joule synchronous cardioversion. 2. Repeat echocardiogram the day of discharge shows an ejection fraction of 50% to 55% and normal wa ll motion. 3. Chest x-ray is pending at the time of discharge. HOSPITAL COURSE: The patient is a 66-year-old male with the above outlined cardiac history. He pres ented to the ER with palpitations that had started earlier that day. He was found to be in either at rial tachycardia or atrial flutter with frequent ventricular ectopy. He underwent a DORINDA-guided cardi oversion with mandaen of normal sinus rhythm. However, his initial rhythm post cardioversion was nonsustained VT. We, therefore, elected to admit him for observation overnight. His rhythm remained sinus rhythm with frequent PVCs and occasional ventricular couplets. He did have another 4-beat run of VT. As mentioned, followup echocardiogram shows normal ejection fraction. He did have coronary angiogram in September 2016 without flow-limiting coronary disease. His sotalol was discontinued. Coreg was initiated. His home dose of metoprolol was stopped. At the time of discharge, he was complaining of a cough, therefore, we ordered a chest x-ray, which is curr ently pending. Otherwise, he is stable for discharge. DISCHARGE PHYSICAL EXAM: VITAL SIGNS: Blood pressure 144/89, heart rate 89, oxygen saturation is 95 % on room air. He has been afebrile throughout admission. GENERAL APPEARANCE: Well-appearing older male in no acute distress. NECK: JVP less than 10. CARDIAC: Regular rate and rhythm without murm ur or gallop. LUNGS: Clear without wheezes, rhonchi, or rales. LOWER EXTREMITIES: No lower extrem ity edema. PERTINENT LABORATORY EVALUATION: ESR is 3. Hematocrit 54.4. INR is 1.1. Basic metabolic panel is essentially normal. C-reactive protein 9.3, magnesium 1.7. Blood cultures, no growth to date. DISCHARGE INSTRUCTIONS: 1. If the patient's chest x-ray is normal, he will be discharged home. 2. Follow up with Dr. Jae Staley and Dr. Denzel Angelo. 3. Reinitiate EP evaluation with Dr. Rudolph Mahan. 4. Call the office immediately for worsening palpitations, chest pain, or dyspnea. /[id number]/MODL
--- NOTE | 2017-07-24 15:54 | ASMTCASEMG ---
Living Arrangements What is your living Answers: With Spouse arrangement? Who do you live with? Type Of Residence What kind of residence do Answers: House you live in? Discharge Plan Comments Coordination Status Comments Notes: Pt is a 66 y/o man admitted for afib. Pt will most likely d/c independent when medically stable. No therapies ordered at this time. CM available for changes. Plan: Independent Date Signed: 07/24/2017 03:53 PM Electronically Signed By:ANURAG Rahman
== END 2017-07-24 16:04 | disposition home or self-care (01) ==
LOC: FCATH 13:03 → F2W 14:06
PROVIDERS: ADMIT Internal Medicine Cardiovascular Disease; ATTEND Internal Medicine Cardiovascular Disease
DX: I47.1 Supraventricular tachycardia (principal); I34.0 Nonrheumatic mitral (valve) insufficiency; J44.9 Chronic obstructive pulmonary disease, unspecified; E03.9 Hypothyroidism, unspecified; I47.2 Ventricular tachycardia; I49.3 Ventricular premature depolarization; R05 Cough
CPT/HCPCS: 71046; 90471; 92960; 93005; 93308; 93312; 99285; G0378; G0008; G0009; J2001; J2370; J2704

== ENCOUNTER 2017-08-31 12:41 | Day surgery (SDC) | payer OTHER ==
[2017-08-31] MEDS ORDERED: LR 1,000 ML IV ONE (13:00)
[2017-08-31 13:17] VITALS: PULSE 57; RESP 16
--- NOTE | 2017-08-31 16:04 | PDANEPAE ---
ANE History of Present Illness screening ANE Past Medical History - Cardiovascular History Hx Hypertension: Yes Hx Arrhythmias: Yes Hx Chest Pain: Yes Hx Coronary Artery / Peripheral Vascular Disease: Yes Hx CHF / Valvular Disease: Yes Hx Palpitations: Yes Cardiovascular History Comment: atrial fib/flutter. ablation x2. cardioversion x2. mitral valve repair - Pulmonary History Hx COPD: Yes Hx Asthma/Reactive Airway Disease: No Hx Recent Upper Respiratory Infection: No Hx Oxygen in Use at Home: Yes O2 in Use at Home (L/minute): O2 2.5 noc Hx Sleep Apnea: Yes Sleep Apnea Screening Result - Last Documented: Positive Pulmonary History Comment: pos hx sleep apnea - no cpap - Neurologic History Hx Cerebrovascular Accident: No Hx Seizures: No Hx Dementia: No - Endocrine History Hx Diabetes: Yes Endocrine History Comment: hypothyroid - Renal History Hx Renal Disorders: No - Liver History Hx Hepatic Disorders: No - Neurological & Psychiatric Hx Hx Neurological and Psychiatric Disorders: No Neurological / Psychiatric History Comment: ANXIETY/DEPRESSION - Cancer History Hx Cancer: No - Congenital Disorder History Hx Congenital Disorders: No - GI History Hx Gastrointestinal Disorders: No - Other Health History Other Health History: neg - Chronic Pain History Chronic Pain: No - Surgical History Prior Surgeries: mitral valve repair w/ring Ablation x2. cardioversion x2. appendectomy. colon resection. rtc x2,. sinus surg x2. growth from back benign ANE Review of Systems Review of Systems: - Exercise capacity METS (RN): 4 METS ANE Patient History - Allergies Allergies/Adverse Reactions: acetaminophen [From Vicodin] Allergy (Verified 08/17/17 14:54) Itching codeine Allergy (Verified 08/17/17 14:50) Itching fentanyl Allergy (Verified 08/17/17 14:50) Itching hydrocodone Allergy (Verified 08/17/17 14:53) Itching latex [Latex] Allergy (Verified 08/17/17 14:50) ITCHING, RASH meperidine [From Demerol] Allergy (Verified 08/17/17 14:50) Itching morphine Allergy (Verified 08/17/17 14:50) Itching oxandrolone [From Oxandrin] Allergy (Verified 08/17/17 14:53) Itching oxycodone Allergy (Verified 08/17/17 14:50) Itching NARCOTICS Allergy (Uncoded 08/17/17 14:50) Itching - Home Medications Home Medications: Albuterol [Proventil Inhaler HFA (*)] 1 - 2 puffs IH Q4 PRN 07/23/17 [Last Taken 08/31/17] Apixaban [Eliquis] 5 mg PO BID 07/23/17 [Last Taken 08/28/17] Aspirin [Aspirin 81mg (*)] 81 mg PO DAILY 07/23/17 [Last Taken 08/31/17] Atorvastatin Calcium [Lipitor 40 mg (*)] 40 mg PO HS 07/23/17 [Last Taken ] Flunisolide Nasal [Nasarel Nasal [place]] 1 sprays EACHNARE BID 07/23/17 [Last Taken 08/31/17] Gabapentin [Neurontin 100 MG (*)] 100 mg PO BID 07/23/17 [Last Taken 08/31/17] Liothyronine Sodium [Cytomel 25 mcg (*)] 12.5 mcg PO DAILY 07/23/17 [Last Taken 08/31/17] Lisinopril [Zestril 5 mg (*)] 5 mg PO DAILY 07/23/17 [Last Taken 08/31/17] Mirtazapine [Remeron] 30 mg PO HS 07/23/17 [Last Taken 08/31/17] QUEtiapine FUMARATE [Seroquel 50 mg (*)] 100 mg PO HS 07/23/17 [Last Taken 08/31] buPROPion XL [Wellbutrin 150mg XL] 450 mg PO DAILY 07/23/17 [Last Taken 08/31/17 ] clonazePAM [klonoPIN (*)] 1 mg PO HS 07/23/17 [Last Taken 08/31/17] - NPO status NPO Since - Liquids (Date): 08/31/17 NPO Since - Liquids (Time): 12:00 NPO Since - Solids (Date): 08/30/17 NPO Since - Solids (Time): 18:00 - Smoking Hx Smoking Status: Former smoker - Family Anes Hx Family Hx Anesthesia Complications: none ANE Labs/Vital Signs - Vital Signs Blood Pressure: 111/75 Heart Rate: 57 Respiratory Rate: 16 O2 Sat (%): 93 Height: 177.8 cm Weight: 88.904 kg ANE Physical Exam - Airway Neck exam: FROM Mallampati Score: Class 2 Mouth exam: normal dental/mouth exam - Pulmonary Pulmonary: no respiratory distress - Cardiovascular Cardiovascular: regular rate and rhythym - ASA Status ASA Status: III ANE Anesthesia Plan Total IV Anesthesia: Yes
[2017-08-31] MEDS ORDERED: PROPOFOL/EMULSION 500 MG/50 ML BOTTLE IV ONE (16:07)
--- NOTE | 2017-08-31 16:18 | PDGENHP ---
History & Physical Chief Complaint: hx of polyps History of Present Illness: 66 year old male presents for surveillance colonoscopy. Pertinent Past, Social, Family History: PMHx: cardiomyopathy, asthma, MVP, MARY. SurgHx: appy, knee, rotator cuff, colon resxn. SoHx: + alc Relevant Physical Exam: HEENT: anicteric. Cv: RRR +s1s2. Lungs: CTAB. Abd: soft, nt, + BS Cardiorespiratory Assessment: ASA 3
[2017-08-31] MEDS ORDERED: NALOXONE HCL 0.4 MG/ML INJ IVP PRN (16:26)
--- NOTE | 2017-08-31 16:38 | GIREPORT ---
[facility] Surgical Services - Endoscopy Department Patient Name: Manuel Washington Procedure Date: 08/31/2017 4:12 PM Patient Type: Outpatient Attending MD/ ER Physician: Tyler Taylor MD Procedure: Colonoscopy Indications: High risk colon cancer surveillance: Personal history of colonic polyps Patient Profile: 66 year old male with a personal history of polyps presents for surveil jeanna colonoscopy. Providers: Tyler Taylor MD Medicines: Monitored Anesthesia Care Complications: No immediate complications. Estimated blood loss: None. Description of Procedure: After obtaining informed consent, the scope was passed under direct vis ion. Throughout the procedure, the patient's blood pressure, pulse, and oxyg en saturations were monitored continuously. The Colonoscope with irrigatio n channel was introduced through the anus with the intention of advancing to the cecum. The scope was advanced to the ascending colon before the procedure was aborted. Medications were given. The colonoscopy was perf ormed without difficulty. The patient tolerated the procedure well. The quali ty of the bowel preparation was poor. Findings: The perianal and digital rectal examinations were normal. Pertinent negatives include no palpable rectal lesions. There was evidence of a prior surgical anastomosis in the sigmoid colon . This was patent and was characterized by healthy appearing mucosa. The anastomosis was traversed. Estimated Blood Loss: Estimated blood loss: none. Post Op Diagnosis: - Preparation of the colon was poor. - Patent surgical anastomosis, characterized by healthy appearing mucos a. Recommendation: - Discharge patient to home (with escort). - Resume previous diet. - Continue present medications. - Repeat colonoscopy because the bowel preparation was poor. Will need 2 day prep? - Thank you for allowing me to participate in the care of your patient. Attending Participation: I personally performed the entire procedure. Tyler Taylor MD Tyler Taylor MD 08/31/2017 4:38:09 PM This report has been signed electronicallyTyler Taylor MD Number of Addenda: 0 Note Initiated On: 08/31/2017 4:12 PM Total Procedure Duration Time 0 hours 4 minutes 55 seconds [email or web address]
[2017-08-31] MEDS ORDERED: NS 500 ML IV SCH (17:00)
[2017-08-31 17:08] VITALS: TEMP 98.1
[2017-08-31 17:50] VITALS: BP 112/75; O2SAT 93
== END 2017-08-31 17:40 | disposition home or self-care (01) ==
LOC: FSGY 12:41
PROVIDERS: ATTEND Internal Medicine Gastroenterology
PROC: 0DJD8ZZ Inspection of Lower Intestinal Tract, Via Natural or Artificial Opening Endoscopic (ICD-10-PCS; principal; 2017-08-31 13:15)
DX: Z12.11 Encounter for screening for malignant neoplasm of colon (principal); I48.91 Unspecified atrial fibrillation; J44.9 Chronic obstructive pulmonary disease, unspecified; E78.5 Hyperlipidemia, unspecified; E03.9 Hypothyroidism, unspecified; G47.33 Obstructive sleep apnea (adult) (pediatric); I47.1 Supraventricular tachycardia
CPT/HCPCS: J2704

== ENCOUNTER 2017-11-23 06:49 | Day surgery (SDC) | payer OTHER ==
[2017-11-23] MEDS ORDERED: LR 1,000 ML IV ONE (07:21)
[2017-11-23] MEDS ORDERED: LIDOCAINE 1% 2 ML INJ ID PRN (07:21)
--- NOTE | 2017-11-23 09:11 | PDANEPAE ---
ANE Past Medical History - Cardiovascular History Hx Hypertension: Yes Hx Arrhythmias: Yes Hx Chest Pain: No Hx Coronary Artery / Peripheral Vascular Disease: Yes Hx CHF / Valvular Disease: Yes Hx Palpitations: Yes Cardiovascular History Comment: atrial fib/flutter. ablation x2. cardioversion x2. mitral valve repair - Pulmonary History Hx COPD: Yes Hx Asthma/Reactive Airway Disease: No Hx Recent Upper Respiratory Infection: No Hx Oxygen in Use at Home: Yes O2 in Use at Home (L/minute): 2.5 Hx Sleep Apnea: Yes Sleep Apnea Screening Result - Last Documented: Positive Pulmonary History Comment: pos hx sleep apnea - no cpap/HS OXYGEN - Neurologic History Hx Cerebrovascular Accident: No Hx Seizures: No Hx Dementia: No - Endocrine History Hx Diabetes: Yes Endocrine History Comment: hypothyroid - Renal History Hx Renal Disorders: No - Liver History Hx Hepatic Disorders: No - Neurological & Psychiatric Hx Hx Neurological and Psychiatric Disorders: No Neurological / Psychiatric History Comment: ANXIETY/DEPRESSION - Cancer History Hx Cancer: No - Congenital Disorder History Hx Congenital Disorders: No - GI History Hx Gastrointestinal Disorders: No - Other Health History Other Health History: LIMITED ROM ZAHIDA SHLDRS. NEEDS TO HAVE ZAHIDA TOTAL KNEES. BAD LT ANKLE AND FOOT - Chronic Pain History Chronic Pain: Yes (ZAHIDA SHLDRS,KNEES AND LT FOOT) - Surgical History Prior Surgeries: COLONOSCOPY 09/01/17. mitral valve repair w/ring Ablation x2. cardioversion x2. appendectomy. colon resection. ZAHIDA ROTATOR CUFF REPAIR. sinus surg x2. growth from back benign ANE Review of Systems Review of Systems: - Exercise capacity METS (RN): 4 METS ANE Patient History - Allergies Allergies/Adverse Reactions: acetaminophen [From Vicodin] Allergy (Verified 08/17/17 14:54) Itching codeine Allergy (Verified 08/17/17 14:50) Itching fentanyl Allergy (Verified 08/17/17 14:50) Itching hydrocodone Allergy (Verified 08/17/17 14:53) Itching latex [Latex] Allergy (Verified 08/17/17 14:50) ITCHING, RASH meperidine [From Demerol] Allergy (Verified 08/17/17 14:50) Itching morphine Allergy (Verified 08/17/17 14:50) Itching oxandrolone [From Oxandrin] Allergy (Verified 08/17/17 14:53) Itching oxycodone Allergy (Verified 08/17/17 14:50) Itching ENVIRONMENTAL Allergy (Uncoded 11/23/17 07:37) NARCOTICS Allergy (Uncoded 08/17/17 14:50) Itching - Home Medications Home Medications: Albuterol [Proventil Inhaler HFA (*)] 1 - 2 puffs IH Q4 PRN 07/23/17 [Last Taken 11/23/17 0500] Apixaban [Eliquis] 5 mg PO BID 07/23/17 [Last Taken 11/19/17 22:00] Aspirin [Aspirin 81mg (*)] 81 mg PO DAILY 07/23/17 [Last Taken 08/31/17] Atorvastatin Calcium [Lipitor 40 mg (*)] 40 mg PO HS 07/23/17 [Last Taken ] Flunisolide Nasal [Nasarel Nasal [place]] 1 sprays EACHNARE BID 07/23/17 [Last Taken 08/31/17] Gabapentin [Neurontin 100 MG (*)] 100 mg PO BID 07/23/17 [Last Taken 11/23/17 05 :00] Liothyronine Sodium [Cytomel 25 mcg (*)] 12.5 mcg PO DAILY 07/23/17 [Last Taken 11/23/17 05:00] Lisinopril [Zestril 5 mg (*)] 5 mg PO DAILY 07/23/17 [Last Taken 11/23/17 05:00] Mirtazapine [Remeron] 30 mg PO HS 07/23/17 [Last Taken 11/23/17 05:00] QUEtiapine FUMARATE [Seroquel 50 mg (*)] 100 mg PO HS 07/23/17 [Last Taken 11/22 22:00] buPROPion XL [Wellbutrin 150mg XL] 450 mg PO DAILY 07/23/17 [Last Taken 05:00] clonazePAM [klonoPIN (*)] 1 mg PO HS 07/23/17 [Last Taken 11/22/17 22:00] - NPO status NPO Status: no food or drink >8 hours NPO Since - Liquids (Date): 11/21/17 NPO Since - Liquids (Time): 20:00 NPO Since - Solids (Date): 11/21/17 NPO Since - Solids (Time): 20:00 - Anes Hx Anes Hx: no prior problems - Smoking Hx Smoking Status: Former smoker - Family Anes Hx Family Hx Anesthesia Complications: none ANE Labs/Vital Signs - Vital Signs Blood Pressure: 136/85 Heart Rate: 55 Respiratory Rate: 16 O2 Sat (%): 96 Height: 177.8 cm Weight: 88.904 kg ANE Physical Exam - Airway Neck exam: FROM Mallampati Score: Class 2 Mouth exam: normal dental/mouth exam - Pulmonary Pulmonary: no respiratory distress, no rales or rhonchi, clear to auscultation - Cardiovascular Cardiovascular: regular rate and rhythym, no murmur, rub, or gallop - ASA Status ASA Status: II ANE Anesthesia Plan Anesthesia Plan: GA with mask
--- NOTE | 2017-11-23 09:14 | PDGENHP ---
History & Physical Chief Complaint: Hematochezia History of Present Illness: 67 yo male with hematochezia. History of colon polyps. Pertinent Past, Social, Family History: Atrial fibriallation. MV ring. Chronic eliquist for afib. COPD. Tobacco abuse. Rare ETOH. No FH CRC Relevant Physical Exam: NAD. RRR. CTA B/L. GI soft. NABS. NT/ND. No R/G Cardiorespiratory Assessment: ASA III. Colonoscopy with MAC
[2017-11-23] MEDS ORDERED: PROPOFOL 200 MG/20 ML VIAL ONE (09:17)
[2017-11-23] MEDS ORDERED: NALOXONE HCL 0.4 MG/ML INJ IVP PRN (09:29)
[2017-11-23] MEDS ORDERED: ONDANSETRON 4 MG/2 ML VIAL IVP PRN (09:29)
[2017-11-23] MEDS ORDERED: LR 500 ML IV PRN (09:29)
--- NOTE | 2017-11-23 09:43 | GIREPORT ---
[facility] - Endoscopy Department Patient Name: Manuel Washington Procedure Date: 11/23/2017 8:39 AM Patient Type: Outpatient Attending / ER Physician: Harmeet Hall MD Procedure: Colonoscopy Indications: Hematochezia Providers: Harmeet Hall MD Medicines: Propofol per Anesthesia Complications: No immediate complications. Description of Procedure: After obtaining informed consent, the scope was passed under direct vis ion. Throughout the procedure, the patient's blood pressure, pulse, and oxyg en saturations were monitored continuously. The Colonoscope with irrigatio n channel was introduced through the anus and advanced to the cecum, identified by appendiceal orifice and ileocecal valve. The colonoscopy was performed without difficulty. The patient tolerated the procedure well. The quality of the bowel preparation was good. The ileocecal valve, appendi ceal orifice, and rectum were photographed. Findings: The digital rectal exam findings include non-thrombosed external hemorrhoids. Pertinent negatives include normal sphincter tone, no palp able rectal lesions and normal prostate (size, shape, and consistency). A 5 mm polyp was found in the descending colon. The polyp was sessile. The polyp was removed with a cold biopsy forceps. Resection and retrieval w ere complete. There was evidence of a prior end-to-end colo-colonic anastomosis in th e sigmoid colon. This was patent and was characterized by healthy appeari ng mucosa. The anastomosis was traversed. Three sessile polyps were found in the rectum and recto-sigmoid colon. The polyps were 3 to 4 mm in size. These polyps were removed with a cold bi opsy forceps. Resection and retrieval were complete. Estimated Blood Loss: Estimated blood loss: none. Post Op Diagnosis: - Non-thrombosed external hemorrhoids found on digital rectal exam. - One 5 mm polyp in the descending colon, removed with a cold biopsy forceps. Resected and retrieved. - Patent end-to-end colo-colonic anastomosis, characterized by healthy appearing mucosa. - Three 3 to 4 mm polyps in the rectum and at the recto-sigmoid colon, removed with a cold biopsy forceps. Resected and retrieved. - The cause for hematochezia is likely hemorrhoidal in the setting of eliquis. Recommendation: - Await pathology results. - Repeat colonoscopy in 5 years for surveillance. - Resume Eliquis (apixaban) at prior dose tomorrow. Refer to referring physician for further adjustment of therapy. - Resume previous diet. - Continue present medications. - Patient has a contact number available for emergencies. The signs and symptoms of potential delayed complications were discussed with the pat ient. Return to normal activities tomorrow. Written discharge instructions we re provided to the patient. - Thank you for allowing me to be involved in the care of your patient. Attending Participation: I personally performed the entire procedure without the assistance of a fellow, resident or surg ical clinical trials assistant. Harmeet Hall MD Harmeet Hall MD 11/23/2017 9:43:08 AM This report has been signed electronicallyDavid MD Isbael Number of Addenda: 0 Note Initiated On: 11/23/2017 8:39 AM Total Procedure Duration Time 0 hours 15 minutes 18 seconds [email or web address]
--- NOTE | 2017-11-23 09:48 | POSTANESTH ---
Post Anesthetic Evaluation Cardiovascular Status: Tx Hyper/Hypo-tension (BP 86 syst on arrival. IV fluid bolus ordered.) Respiratory Status: Normal, Stable, Similar to Pre-op Cond. Level of Consciousness/Mental Status: Can Participate in Eval, Mildly Sleepy, Arousable Pain Control: Adequate, Prn Tx Ordered Nausea/Vomiting Control: Adequate, Prn Tx Ordered Complications Possibly Related to Anesthesia: None Noted
[2017-11-23 10:50] VITALS: BP 118/75
== END 2017-11-23 11:08 | disposition home or self-care (01) ==
LOC: FSGY 06:49
PROVIDERS: ATTEND Internal Medicine Gastroenterology
DX: K63.5 Polyp of colon (principal); K64.4 Residual hemorrhoidal skin tags; I48.91 Unspecified atrial fibrillation; Z79.01 Long term (current) use of anticoagulants; Z72.0 Tobacco use
CPT/HCPCS: J2704

== ENCOUNTER → 2018-01-29 | Outpatient (CLI) | payer OTHER | LOC: BMCIMAGING 13:22 | PROVIDERS: ATTEND Physician Assistant | DX: M25.572 Pain in left ankle and joints of left foot (principal); M76.52 Patellar tendinitis, left knee; M21.42 Flat foot [pes planus] (acquired), left foot; M19.072 Primary osteoarthritis, left ankle and foot ==

== ENCOUNTER → 2018-07-30 | Outpatient (CLI) | payer OTHER | LOC: BMCIMAGING 13:47 ==

== ENCOUNTER 2018-10-19 09:57 | Day surgery (SDC) | payer OTHER ==
[2018-10-19] MEDS ORDERED: LIDOCAINE 1% 300 MG/30 ML SDV SC ONE (10:01)
--- NOTE | 2018-10-19 10:30 | PDGENHP ---
History & Physical Chief Complaint: presyncope Relevant Physical Exam: s1s2 rrr cta ao3 Cardiorespiratory Assessment: for sjm confirm ilr
--- NOTE | 2018-10-19 11:03 | EPPROC ---
Electrophysiology Procedure Note: [facility] confirm implantable loop recorder Indication - [id number] Anesthesia - local Consent - on chart Sterile technique, in CVC, device implanted in 4th LICS using standard technique. No complications R waves 1.1 mV Recording triggers - patient symptoms, HR <40 bpm >150 bpm asystole >3s Patient Problems: Problems Problem Status Onset Afib - Atrial fibrillation Active Bacteremia Active Fever Active Mitral valve regurgitation Active Pneumonia Active Atrial fibrillation Acute
== END 2018-10-19 11:00 | disposition home or self-care (01) ==
LOC: FCATH 09:57
PROVIDERS: ATTEND Internal Medicine Cardiovascular Disease
PROC: 0JH602Z Insertion of Monitoring Device into Chest Subcutaneous Tissue and Fascia, Open Approach (ICD-10-PCS; principal; 2018-10-19)
DX: R55 Syncope and collapse (principal); Z86.79 Personal history of other diseases of the circulatory system; I34.0 Nonrheumatic mitral (valve) insufficiency; J44.9 Chronic obstructive pulmonary disease, unspecified; I25.10 Atherosclerotic heart disease of native coronary artery without angina pectoris; E78.5 Hyperlipidemia, unspecified; I10 Essential (primary) hypertension; E03.9 Hypothyroidism, unspecified; Z79.01 Long term (current) use of anticoagulants; Z95.1 Presence of aortocoronary bypass graft
CPT/HCPCS: C1764